=== PATIENT | male | born 1940 | race Caucasian/White ===

== ENCOUNTER 2017-04-19 19:57 | Observation (INO) | payer MEDICARE ==
[~2017-04-19] VITALS: Ht 172.7 cm; Wt 105.8 kg
[~2017-04-19 19:57] MED LIST: FURO20TA4 PO; PANT40TA PO; SPIR25TA4 PO
[2017-04-19 20:39] LABS: EOSINOPHILS % (AUTO) 6.9 % (0.0-8.0); HEMATOCRIT 27.8 % (42-54); LYMPHOCYTES % (AUTO) 19.3 % (21.0-51.0); MEAN CORPUSCULAR HEMOGLOBIN 33.1 pg (27.0-33.0); MEAN CORPUSCULAR HGB CONC 34.9 g/dL (32.0-36.0); MEAN CORPUSCULAR VOLUME 94.9 fL (79-99); MONOCYTES % (AUTO) 19.7 % (3.0-13.0); NEUTROPHILS % (AUTO) 53.1 % (40.0-77.0); NUCLEATED RED BLOOD CELLS 0.1 % (0.0-0.19); PLATELET COUNT (AUTO) 186 K/uL (130-400); RED BLOOD CELL COUNT(AUTO) 2.92 MIL/uL (4.50-6.20); RED CELL DISTRIBUTION WIDTH 15.9 % (11.0-15.5); WHITE BLOOD COUNT (AUTO) 5.7 K/uL (4.8-10.8)
[2017-04-19 20:52] LABS: INR 1.41 (0.85-1.15); PARTIAL THROMBOPLASTIN TIME 34.5 SEC (26.3-35.5); PROTHROMBIN TIME 14.7 SEC (9.6-11.6)
[2017-04-19 20:54] LABS: CREATININE 1.3 mg/dL (0.5-1.5); POTASSIUM 3.4 mmol/L (3.5-5.1)
[2017-04-19 21:08] LABS: ALBUMIN 2.2 g/dL (3.5-5.0); BILIRUBIN,TOTAL 1.8 mg/dL (0.2-1.0); CREATINE KINASE MB 0.9 ng/mL (0.5-3.6); TOTAL PROTEIN, SERUM 8.2 g/dL (6.0-8.3)
[2017-04-19] MEDS ORDERED: LACTULOSE 20 GM/30 ML UDCUP ONE (21:33)
[2017-04-20] MEDS ORDERED: POTASSIUM CHLORIDE 20 MEQ ERTAB PO PRN (00:45)
[2017-04-20] MEDS ORDERED: POTASSIUM CHLORIDE 10% ELIXIR 20 MEQ/15 ML UDCUP PO PRN (00:45)
[2017-04-20] MEDS ORDERED: LIDOCAINE HCL-MPF 1% 2ML VIAL IVP PRN (00:45)
[2017-04-20] MEDS ORDERED: HYDRALAZINE HCL 20 MG/ML VIAL IV PRN (00:45)
[2017-04-20] MEDS ORDERED: POTASSIUM CHLORIDE 20MEQ/100ML 100 ML IV PRN (00:45)
[2017-04-20] MEDS ORDERED: ONDANSETRON HCL 4 MG/2 ML VIAL IV PRN (00:45)
[2017-04-20 02:40] VITALS: BP 126/73
[2017-04-20] MEDS ORDERED: FURO40TA5 PO (03:35)
[2017-04-20] MEDS ORDERED: METO-408 PO (03:35)
[2017-04-20] MEDS ORDERED: LACT10SO32 PO (03:35)
[2017-04-20] MEDS ORDERED: SPIR25TA4 PO (03:35)
[2017-04-20] MEDS ORDERED: TRIA80OI15 TP (03:38)
[2017-04-20] MEDS ORDERED: FLUT30CR12 TP (03:38)
[2017-04-20] MEDS: INSULIN HUMULIN R 100 UNIT/ML 3ML SQ SCH ×4 (06:07→21:00)
[2017-04-20 06:26] LABS: MEAN CORPUSCULAR HEMOGLOBIN 32.6 pg (27.0-33.0); MEAN CORPUSCULAR HGB CONC 34.4 g/dL (32.0-36.0); MEAN CORPUSCULAR VOLUME 94.8 fL (79-99); NUCLEATED RED BLOOD CELLS 0.1 % (0.0-0.19); PLATELET COUNT (AUTO) 171 K/uL (130-400); RED BLOOD CELL COUNT(AUTO) 2.96 MIL/uL (4.50-6.20); WHITE BLOOD COUNT (AUTO) 5.7 K/uL (4.8-10.8)
[2017-04-20 06:37] LABS: CREATININE 1.2 mg/dL (0.5-1.5); POTASSIUM 3.3 mmol/L (3.5-5.1)
[2017-04-20 07:00] VITALS: BP 116/56
[2017-04-20 10:00] VITALS: BP 118/60
[2017-04-20] MEDS: LACTULOSE 20 GM/30 ML UDCUP PO SCH ×3 (10:10→21:09)
[2017-04-20] MEDS: PANTOPRAZOLE SODIUM 40 MG TABLET.DR PO SCH (10:10)
[2017-04-20] MEDS ORDERED: LACTULOSE 20 GM/30 ML UDCUP PO PRN (10:45)
[2017-04-20 11:00] VITALS: BP 110/63
[2017-04-20 12:40] LABS: APPEARANCE BODY FLUID CLOUDY (CLEAR); BODY FLUID WBC 168 /cu. mm.; COLOR,BODY FLUID ORANGE (LT YELLOW); SPECIMENTYPE,BODY FLUID ASCITES; TOTAL VOLUME,BODY FLUID 3800 mL
[2017-04-20 12:41] LABS: BODY FLUID RBC 7690 /cu. mm.
[2017-04-20 13:11] LABS: BF LYMPHOCYTE 26 %; BF MESOTHELIAL 63 %; BF MONOCYTE 4 %
[2017-04-20] MEDS: FUROSEMIDE 40 MG TABLET PO SCH (13:27)
[2017-04-20] MEDS: SPIRONOLACTONE 25 MG TAB PO SCH (13:27)
[2017-04-20 16:00] VITALS: BP 114/66
[2017-04-20 19:30] VITALS: BP 112/68
[2017-04-20] MEDS: FLUTICASONE PROPIONATE TP SCH (21:08)
[2017-04-20] MEDS: TRIAMCINOLONE ACETONIDE 0.1% CREAM 15GM TP SCH (21:08)
[2017-04-20] MEDS: METOPROLOL TARTRATE 25 MG TAB PO SCH (21:09)
[2017-04-21 00:29] VITALS: BP 114/66
[2017-04-21 04:58] VITALS: BP 109/68
[2017-04-21] MEDS: INSULIN HUMULIN R 100 UNIT/ML 3ML SQ SCH (05:45)
[2017-04-21 05:52] LABS: HEMATOCRIT 27.3 % (42-54); MEAN CORPUSCULAR HEMOGLOBIN 33.4 pg (27.0-33.0); MEAN CORPUSCULAR HGB CONC 35.2 g/dL (32.0-36.0); MEAN CORPUSCULAR VOLUME 94.9 fL (79-99); PLATELET COUNT (AUTO) 166 K/uL (130-400); RED BLOOD CELL COUNT(AUTO) 2.87 MIL/uL (4.50-6.20); RED CELL DISTRIBUTION WIDTH 16.2 % (11.0-15.5); WHITE BLOOD COUNT (AUTO) 5.1 K/uL (4.8-10.8)
[2017-04-21 05:57] LABS: CREATININE 1.2 mg/dL (0.5-1.5); POTASSIUM 3.5 mmol/L (3.5-5.1)
[2017-04-21 07:00] VITALS: BP 114/59
[2017-04-21] MEDS: FUROSEMIDE 40 MG TABLET PO SCH (10:08)
[2017-04-21] MEDS: METOPROLOL TARTRATE 25 MG TAB PO SCH (10:08)
[2017-04-21] MEDS: PANTOPRAZOLE SODIUM 40 MG TABLET.DR PO SCH (10:08)
[2017-04-21] MEDS: SPIRONOLACTONE 25 MG TAB PO SCH (10:08)
[2017-04-21] MEDS: LACTULOSE 20 GM/30 ML UDCUP PO SCH (10:10)
[2017-04-21] MEDS: FLUTICASONE PROPIONATE TP SCH (10:10)
[2017-04-21] MEDS: TRIAMCINOLONE ACETONIDE 0.1% CREAM 15GM TP SCH (10:11)
== END 2017-04-21 11:58 | disposition home or self-care (01) ==
LOC: EDH 19:57 → EDHIP 21:42 → 3CH 04-20 00:20 → EDHIP 04-20 00:24 → 4BH 04-20 01:51
PROVIDERS: ADMIT Family Medicine; ATTEND Family Medicine
DX: K74.60 Unspecified cirrhosis of liver (principal); R18.8 Other ascites; I48.91 Unspecified atrial fibrillation; I10 Essential (primary) hypertension; E11.9 Type 2 diabetes mellitus without complications; E72.4 Disorders of ornithine metabolism; D64.9 Anemia, unspecified; Z87.891 Personal history of nicotine dependence
CPT/HCPCS: 36415 ×3; 49083; 71045; 76700; 80048 ×2; 80053; 82140 ×2; 82550; 82553; 82948 ×5; 83874; 84484; 85025; 85027 ×2; 85610; 85730; 87071; 87205; 88108; 88305; 89051; 93005; 97161; 99285; G0378 ×38; G8978; G8979; G8980; G8981; G8982; G8983; C9113

== ENCOUNTER 2017-04-30 16:13 | Observation (INO) | payer MEDICARE ==
[~2017-04-30] VITALS: Ht 172.7 cm; Wt 112.0 kg
[~2017-04-30 16:13] MED LIST changes: +FLUT30CR12 TP; -FURO20TA4 PO; +FURO40TA5 PO; +LACT10SO32 PO; +METO-408 PO; -PANT40TA PO; +TRIA80OI15 TP
[2017-04-30 17:24] LABS: BASOPHILS % (AUTO) 0.9 % (0.0-5.0); EOSINOPHILS % (AUTO) 5.1 % (0.0-8.0); HEMATOCRIT 27.2 % (42-54); LYMPHOCYTES % (AUTO) 10.4 % (21.0-51.0); MEAN CORPUSCULAR HEMOGLOBIN 32.3 pg (27.0-33.0); MEAN CORPUSCULAR HGB CONC 34.6 g/dL (32.0-36.0); MEAN CORPUSCULAR VOLUME 93.6 fL (79-99); MONOCYTES % (AUTO) 18.7 % (3.0-13.0); NEUTROPHILS % (AUTO) 64.9 % (40.0-77.0); PLATELET COUNT (AUTO) 163 K/uL (130-400); RED CELL DISTRIBUTION WIDTH 15.6 % (11.0-15.5); WHITE BLOOD COUNT (AUTO) 7.2 K/uL (4.8-10.8)
[2017-04-30 17:36] LABS: CREATININE 1.5 mg/dL (0.5-1.5); POTASSIUM 4.1 mmol/L (3.5-5.1)
[2017-04-30 17:40] LABS: INR 1.51 (0.85-1.15); PARTIAL THROMBOPLASTIN TIME 34.3 SEC (26.3-35.5); PROTHROMBIN TIME 15.7 SEC (9.6-11.6)
[2017-04-30 17:41] LABS: ALBUMIN 2.1 g/dL (3.5-5.0); BILIRUBIN,TOTAL 2.3 mg/dL (0.2-1.0)
[2017-04-30] MEDS ORDERED: VANCOMYCIN 1GM+NS 250ML 250 ML IV ONE (18:12)
[2017-04-30 22:50] VITALS: BP 122/71
[2017-04-30] MEDS ORDERED: LIDOCAINE HCL-MPF 1% 2ML VIAL IJ PRN (23:30)
[2017-04-30] MEDS ORDERED: POTASSIUM CHLORIDE 10% ELIXIR 20 MEQ/15 ML UDCUP PO PRN (23:30)
[2017-04-30] MEDS ORDERED: ACETAMINOPHEN 325 MG TAB PO PRN ×2 (23:30)
[2017-04-30] MEDS ORDERED: CLONIDINE HCL 0.1 MG TABLET PO PRN (23:30)
[2017-04-30] MEDS ORDERED: POTASSIUM CHLORIDE 20 MEQ ERTAB PO PRN (23:30)
[2017-04-30] MEDS ORDERED: ONDANSETRON HCL 4 MG/2 ML VIAL IVP PRN (23:30)
[2017-04-30] MEDS ORDERED: SODIUM CHLORIDE 0.9% 10 ML VIAL IVP SCH (23:30)
[2017-04-30] MEDS ORDERED: POTASSIUM CHLORIDE 20MEQ/100ML 100 ML IV PRN (23:30)
[2017-04-30] MEDS ORDERED: LACTULOSE 20 GM/30 ML UDCUP PO PRN (23:30)
[2017-04-30] MEDS ORDERED: VANCOMYCIN 1GM+NS 250ML 250 ML IV SCH (23:45)
[2017-05-01] VITALS (7 sets, daily range): BP systolic 97–119; BP diastolic 49–69
[2017-05-01 05:11] LABS: HEMATOCRIT 26.4 % (42-54); MEAN CORPUSCULAR HEMOGLOBIN 32.8 pg (27.0-33.0); MEAN CORPUSCULAR HGB CONC 34.7 g/dL (32.0-36.0); MEAN CORPUSCULAR VOLUME 94.5 fL (79-99); PLATELET COUNT (AUTO) 158 K/uL (130-400); RED BLOOD CELL COUNT(AUTO) 2.79 MIL/uL (4.50-6.20); RED CELL DISTRIBUTION WIDTH 15.6 % (11.0-15.5); WHITE BLOOD COUNT (AUTO) 6.8 K/uL (4.8-10.8)
[2017-05-01 05:35] LABS: BILIRUBIN,TOTAL 3.4 mg/dL (0.2-1.0); CREATININE 1.5 mg/dL (0.5-1.5); POTASSIUM 3.8 mmol/L (3.5-5.1); TOTAL PROTEIN, SERUM 7.4 g/dL (6.0-8.3)
[2017-05-01] MEDS ORDERED: LACT10SO32 PO (05:39)
[2017-05-01] MEDS ORDERED: LACTULOSE 20 GM/30 ML UDCUP PO PRN (05:45)
[2017-05-01] MEDS ORDERED: VANCOMYCIN 1GM+NS 250ML 250 ML IV SCH ×3 (06:00→09:00)
[2017-05-01] MEDS ORDERED: COMPOUND IV REFRIGERATED 1 EACH IVSOLN MISC PRN (07:15)
[2017-05-01] MEDS: SPIRONOLACTONE 25 MG TAB PO SCH (08:42)
[2017-05-01] MEDS: LACTULOSE 20 GM/30 ML UDCUP PO SCH (08:42)
[2017-05-01] MEDS: FUROSEMIDE 40 MG TABLET PO SCH (08:42)
[2017-05-01] MEDS: METOPROLOL TARTRATE 25 MG TAB PO SCH ×2 (08:42→21:00)
[2017-05-01] MEDS: VANCOMYCIN 750MG + NS 250 ML IV SCH ×4 (08:43→20:16)
[2017-05-01] MEDS: TRIAMCINOLONE ACETONIDE 0.1% CREAM 15GM TP SCH ×2 (08:43→20:22)
[2017-05-01] MEDS: FLUTICASONE PROPIONATE TP SCH ×2 (09:00→20:22)
[2017-05-01] MEDS ORDERED: FUROSEMIDE 10 MG/ML 4ML VIAL IV SCH (09:30)
[2017-05-01] MEDS ORDERED: FUROSEMIDE 10 MG/ML 4ML VIAL ONE (17:51)
[2017-05-01] MEDS ORDERED: FLUTICASONE PROPIONATE TP SCH (21:00)
[2017-05-02 04:25] VITALS: BP 92/52
[2017-05-02 05:23] LABS: CREATININE 1.6 mg/dL (0.5-1.5); POTASSIUM 3.8 mmol/L (3.5-5.1)
[2017-05-02 08:00] VITALS: BP 108/63
[2017-05-02] MEDS: LACTULOSE 20 GM/30 ML UDCUP PO SCH (09:19)
[2017-05-02] MEDS: SPIRONOLACTONE 25 MG TAB PO SCH (09:19)
[2017-05-02] MEDS: METOPROLOL TARTRATE 25 MG TAB PO SCH (09:19)
[2017-05-02] MEDS: FUROSEMIDE 40 MG TABLET PO SCH (09:20)
[2017-05-02] MEDS ORDERED: DOXYCYCLINE HYCLATE 100 MG TABLET PO SCH (09:30)
[2017-05-02] MEDS: TRIAMCINOLONE ACETONIDE 0.1% CREAM 15GM TP SCH (09:58)
[2017-05-02 11:53] VITALS: BP 129/60
== END 2017-05-02 13:27 | disposition home or self-care (01) ==
LOC: EDH 16:13 → EDHIP 21:43 → 4BH 22:30
PROVIDERS: ADMIT Internal Medicine; ATTEND Internal Medicine
DX: L03.116 Cellulitis of left lower limb (principal); L03.115 Cellulitis of right lower limb; K74.60 Unspecified cirrhosis of liver; R18.8 Other ascites; D64.9 Anemia, unspecified; I48.91 Unspecified atrial fibrillation; E11.9 Type 2 diabetes mellitus without complications; I10 Essential (primary) hypertension; Z87.891 Personal history of nicotine dependence; Z79.899 Other long term (current) drug therapy; Z96.652 Presence of left artificial knee joint
CPT/HCPCS: 36415 ×3; 49083; 71045; 80048; 80053 ×2; 82140; 83880; 85025; 85027; 85610; 85730; 93005; 93970; 96365; 96366; 96375; 99285; G0378 ×40; J1940; J3370 ×3; J7030 ×2

== ENCOUNTER 2017-05-22 19:01 | Inpatient (IN) | payer MEDICARE ==
[~2017-05-22] VITALS: Ht 172.7 cm; Wt 103.2 kg
[2017-05-22 19:38] LABS: BASOPHILS % (AUTO) 0.8 % (0.0-5.0); EOSINOPHILS % (AUTO) 12.1 % (0.0-8.0); HEMATOCRIT 27.4 % (42-54); LYMPHOCYTES % (AUTO) 12.5 % (21.0-51.0); MEAN CORPUSCULAR HEMOGLOBIN 32.3 pg (27.0-33.0); MEAN CORPUSCULAR HGB CONC 34.4 g/dL (32.0-36.0); MONOCYTES % (AUTO) 19.2 % (3.0-13.0); NEUTROPHILS % (AUTO) 55.4 % (40.0-77.0); NUCLEATED RED BLOOD CELLS 0.1 % (0.0-0.19); PLATELET COUNT (AUTO) 152 K/uL (130-400); RED BLOOD CELL COUNT(AUTO) 2.92 MIL/uL (4.50-6.20); RED CELL DISTRIBUTION WIDTH 17.5 % (11.0-15.5); WHITE BLOOD COUNT (AUTO) 5.8 K/uL (4.8-10.8)
[2017-05-22 19:50] LABS: CREATININE 1.6 mg/dL (0.5-1.5); POTASSIUM 3.5 mmol/L (3.5-5.1)
[2017-05-22 19:51] LABS: INR 1.53 (0.85-1.15); PROTHROMBIN TIME 15.9 SEC (9.6-11.6)
[2017-05-22 20:03] LABS: ALBUMIN 1.9 g/dL (3.5-5.0); BILIRUBIN,TOTAL 3.1 mg/dL (0.2-1.0); TOTAL PROTEIN, SERUM 8.4 g/dL (6.0-8.3)
[2017-05-22] MEDS ORDERED: FUROSEMIDE 10 MG/ML 4ML VIAL ONE (21:19)
[2017-05-22] MEDS ORDERED: ALBUMIN (HUMAN) 25% 50 ML IV ONE (21:20)
[2017-05-22] MEDS ORDERED: GUAIFENESIN-DM 200/20 MG 10 ML PO PRN (23:15)
[2017-05-22] MEDS ORDERED: POTASSIUM CHLORIDE 20 MEQ ERTAB PO PRN (23:15)
[2017-05-22] MEDS ORDERED: LIDOCAINE HCL-MPF 1% 2ML VIAL IVP PRN (23:15)
[2017-05-22] MEDS ORDERED: POTASSIUM CHLORIDE 20MEQ/100ML 100 ML IV PRN (23:15)
[2017-05-22] MEDS ORDERED: POTASSIUM CHLORIDE 10% ELIXIR 20 MEQ/15 ML UDCUP PO PRN (23:15)
[2017-05-22] MEDS ORDERED: ONDANSETRON HCL 4 MG/2 ML VIAL IV PRN (23:15)
[2017-05-23 04:18] LABS: HEMATOCRIT 26.5 % (42-54); MEAN CORPUSCULAR HEMOGLOBIN 33.1 pg (27.0-33.0); MEAN CORPUSCULAR HGB CONC 35.3 g/dL (32.0-36.0); MEAN CORPUSCULAR VOLUME 93.8 fL (79-99); NUCLEATED RED BLOOD CELLS 0.1 % (0.0-0.19); PLATELET COUNT (AUTO) 146 K/uL (130-400); RED BLOOD CELL COUNT(AUTO) 2.83 MIL/uL (4.50-6.20); RED CELL DISTRIBUTION WIDTH 17.7 % (11.0-15.5)
[2017-05-23 04:49] LABS: CARBON DIOXIDE 31 mmol/L (21-32); CHLORIDE 98 mmol/L (101-111); CREATINE KINASE MB 0.9 ng/mL (0.5-3.6); CREATINE KINASE, TOTAL 171 U/L (21-232); CREATININE 1.5 mg/dL (0.5-1.5); GLOMERULAR FILTR. RATE CALC 48 mL/min (>60); GLUCOSE,RANDOM 124 mg/dL (70-105); MYOGLOBIN 152 ng/mL (10-92); POTASSIUM 3.5 mmol/L (3.5-5.1); SODIUM SERUM 137 mmol/L (136-145); TROPONIN I < 0.04 ng/mL (0.00-0.06); UREA NITROGEN, BLOOD 17 mg/dL (7-18)
[2017-05-23] MEDS: INSULIN HUMULIN R 100 UNIT/ML 3ML SQ SCH ×4 (07:30→20:47)
[2017-05-23] MEDS: PANTOPRAZOLE SODIUM 40 MG TABLET.DR PO SCH (09:00)
[2017-05-23] MEDS: FUROSEMIDE 10 MG/ML 4ML VIAL IVP SCH ×2 (09:00→20:47)
[2017-05-23] MEDS ORDERED: FUROSEMIDE 10 MG/ML 4ML VIAL ONE (16:32)
[2017-05-23] MEDS ORDERED: PANTOPRAZOLE SODIUM 40 MG TABLET.DR PO ONE (16:33)
[2017-05-23 17:00] VITALS: BP 112/67
[2017-05-23 19:30] VITALS: BP 106/68
[2017-05-24] VITALS (10 sets, daily range): BP systolic 96–124; BP diastolic 55–88
[2017-05-24 04:19] LABS: CREATININE 1.4 mg/dL (0.5-1.5); POTASSIUM 3.5 mmol/L (3.5-5.1)
[2017-05-24] MEDS: INSULIN HUMULIN R 100 UNIT/ML 3ML SQ SCH ×3 (06:25→16:24)
[2017-05-24] MEDS: PANTOPRAZOLE SODIUM 40 MG TABLET.DR PO SCH (08:49)
[2017-05-24] MEDS: FUROSEMIDE 10 MG/ML 4ML VIAL IVP SCH (08:49)
== END 2017-05-24 19:00 | disposition home or self-care (01) | DRG 433 ==
LOC: EDH 19:01 → OBSVTOIN 21:57 → EDHIP 21:57 → 3AH 05-23 16:37
PROVIDERS: ADMIT Internal Medicine; ATTEND Internal Medicine
PROC: 0W9G3ZZ Drainage of Peritoneal Cavity, Percutaneous Approach (ICD-10-PCS; principal; 2017-05-23)
DX: K74.60 Unspecified cirrhosis of liver (principal); R18.8 Other ascites; N17.9 Acute kidney failure, unspecified; I48.0 Paroxysmal atrial fibrillation; I50.22 Chronic systolic (congestive) heart failure; I11.0 Hypertensive heart disease with heart failure; E44.1 Mild protein-calorie malnutrition; D64.9 Anemia, unspecified; E11.9 Type 2 diabetes mellitus without complications; N28.9 Disorder of kidney and ureter, unspecified; R09.89 Other specified symptoms and signs involving the circulatory and respiratory systems; Z88.2 Allergy status to sulfonamides; Z88.8 Allergy status to other drugs, medicaments and biological substances; Z82.3 Family history of stroke; Z83.3 Family history of diabetes mellitus
CPT/HCPCS: 36415; 49083; 71045; 80048; 80053; 82550; 82553; 82948; 83874; 83880; 84484; 85025; 85027; 85610; 85730; 93005; 93306; J1940; P9047

== ENCOUNTER 2017-05-27 15:05 | Inpatient (IN) | payer MEDICARE ==
[~2017-05-27] VITALS: Ht 172.7 cm; Wt 94.9 kg
[2017-05-27 15:42] LABS: BASOPHILS % (AUTO) 0.8 % (0.0-5.0); EOSINOPHILS % (AUTO) 13.1 % (0.0-8.0); HEMATOCRIT 27.3 % (42-54); LYMPHOCYTES % (AUTO) 14.8 % (21.0-51.0); MEAN CORPUSCULAR HEMOGLOBIN 33.9 pg (27.0-33.0); MEAN CORPUSCULAR HGB CONC 35.8 g/dL (32.0-36.0); MEAN CORPUSCULAR VOLUME 94.7 fL (79-99); NEUTROPHILS % (AUTO) 54.3 % (40.0-77.0); NUCLEATED RED BLOOD CELLS 0.1 % (0.0-0.19); PLATELET COUNT (AUTO) 147 K/uL (130-400); RED BLOOD CELL COUNT(AUTO) 2.88 MIL/uL (4.50-6.20); RED CELL DISTRIBUTION WIDTH 18.2 % (11.0-15.5); WHITE BLOOD COUNT (AUTO) 5.3 K/uL (4.8-10.8)
[2017-05-27 15:51] LABS: CREATININE 1.5 mg/dL (0.5-1.5); POTASSIUM 3.7 mmol/L (3.5-5.1)
[2017-05-27 15:56] LABS: BILIRUBIN,TOTAL 3.1 mg/dL (0.2-1.0); TOTAL PROTEIN, SERUM 8.2 g/dL (6.0-8.3)
[2017-05-27 16:02] LABS: INR 1.51 (0.85-1.15); PARTIAL THROMBOPLASTIN TIME 33.9 SEC (26.3-35.5); PROTHROMBIN TIME 15.7 SEC (9.6-11.6)
[2017-05-27 16:14] LABS: B-TYPE NATRIURETIC PEPTIDE 721 pg/mL (0-100)
[2017-05-27] MEDS ORDERED: LEVOFLOXACIN 500 MG/D5W 100 ML 100 ML ONE (16:29)
[2017-05-27 19:00] LABS: APPEARANCE,URINE Clear (CLEAR); BILIRUBIN,URINE Small (NEGATIVE); COLOR,URINE Dark Yellow (YELLOW); GLUCOSE, URINE (UA) Negative (NEGATIVE); KETONES,URINE Negative (NEGATIVE); LEUKOCYTE ESTERASE ,URINE Negative (NEGATIVE); NITRATE,URINE Negative (NEGATIVE); OCCULT BLOOD,URINE Negative (NEGATIVE); PH,URINE 5.5 (5.0-8.0); PROTEIN,URINE Trace (NEGATIVE)
[2017-05-27 19:13] LABS: BACTERIA,URINE None Seen /HPF (None Seen); RBC,URINE None Seen /HPF (0-1); SQUAMOUS EPITHELIAL CELL,UR 0-2 /HPF (0-2); WBC,URINE None Seen /HPF (0-1)
[2017-05-27] MEDS ORDERED: FUROSEMIDE 10 MG/ML 4ML VIAL ONE (20:32)
[2017-05-27] MEDS ORDERED: LIDOCAINE HCL-MPF 1% 2ML VIAL IJ PRN (21:00)
[2017-05-27] MEDS ORDERED: LACTULOSE 20 GM/30 ML UDCUP PO PRN (21:00)
[2017-05-27] MEDS ORDERED: DEXTROSE 50%-WATER 50 ML DISP.SYRIN IV PRN (21:00)
[2017-05-27] MEDS ORDERED: ONDANSETRON HCL 4 MG/2 ML VIAL IVP PRN (21:00)
[2017-05-27] MEDS ORDERED: GLUCAGON 1MG KIT 1 MG ML IM PRN (21:00)
[2017-05-27] MEDS ORDERED: POTASSIUM CHLORIDE 10% ELIXIR 20 MEQ/15 ML UDCUP PO PRN (21:00)
[2017-05-27] MEDS ORDERED: POTASSIUM CHLORIDE 20MEQ/100ML 100 ML IV PRN (21:00)
[2017-05-27] MEDS ORDERED: CLONIDINE HCL 0.1 MG TABLET PO PRN (21:00)
[2017-05-27] MEDS ORDERED: IPRATROPIUM/ALBUTEROL SULFATE 3 ML SOLUTION IH PRN (21:15)
[2017-05-28 00:30] VITALS: BP 122/64
[2017-05-28 03:10] VITALS: BP 106/67
[2017-05-28 04:03] LABS: HEMATOCRIT 27.3 % (42-54); MEAN CORPUSCULAR HEMOGLOBIN 32.4 pg (27.0-33.0); MEAN CORPUSCULAR HGB CONC 34.5 g/dL (32.0-36.0); NUCLEATED RED BLOOD CELLS 0.1 % (0.0-0.19); PLATELET COUNT (AUTO) 149 K/uL (130-400); WHITE BLOOD COUNT (AUTO) 5.1 K/uL (4.8-10.8)
[2017-05-28 04:35] LABS: ALBUMIN 1.9 g/dL (3.5-5.0); BILIRUBIN,TOTAL 3.2 mg/dL (0.2-1.0); CREATININE 1.4 mg/dL (0.5-1.5); POTASSIUM 3.6 mmol/L (3.5-5.1); TOTAL PROTEIN, SERUM 7.9 g/dL (6.0-8.3)
[2017-05-28] MEDS: POTASSIUM CHLORIDE 20 MEQ ERTAB PO PRN ×2 (04:46→11:20)
[2017-05-28] MEDS: INSULIN R PO SSI SQ SCH ×4 (06:22→21:00)
[2017-05-28 08:00] VITALS: BP 111/60
[2017-05-28] MEDS ORDERED: FUROSEMIDE 10 MG/ML 2ML VIAL IV SCH (09:00)
[2017-05-28] MEDS: FAMOTIDINE 20MG TAB 20 MG TAB PO SCH ×2 (09:13→21:51)
[2017-05-28] MEDS: LACTULOSE 20 GM/30 ML UDCUP PO SCH ×2 (09:14→21:51)
[2017-05-28 12:00] VITALS: BP 112/59
[2017-05-28] MEDS: DIPHENHYDRAMINE HCL 25 MG CAPSULE PO PRN (12:58)
[2017-05-28 13:56] LABS: INR 1.51 (0.85-1.15); PROTHROMBIN TIME 15.7 SEC (9.6-11.6)
[2017-05-28] MEDS ORDERED: ALBUMIN (HUMAN) 25% 50 ML IV SCH ×2 (15:45)
[2017-05-28 16:00] VITALS: BP 106/60
[2017-05-28 19:30] VITALS: BP 114/67
[2017-05-28] MEDS: FUROSEMIDE 10 MG/ML 2ML VIAL IV SCH (21:52)
[2017-05-29 03:42] VITALS: BP 109/68
[2017-05-29] MEDS: INSULIN R PO SSI SQ SCH ×3 (05:55→21:00)
[2017-05-29 08:00] VITALS: BP 113/70
[2017-05-29] MEDS: LACTULOSE 20 GM/30 ML UDCUP PO SCH ×2 (08:56→20:32)
[2017-05-29] MEDS: FUROSEMIDE 10 MG/ML 2ML VIAL IV SCH ×2 (08:56→20:33)
[2017-05-29] MEDS: FAMOTIDINE 20MG TAB 20 MG TAB PO SCH ×2 (08:56→20:33)
[2017-05-29 11:33] VITALS: BP 111/59
[2017-05-29 11:57] VITALS: BP 111/64
[2017-05-29 16:00] VITALS: BP 100/60
[2017-05-29 19:30] VITALS: BP 114/68
[2017-05-30] VITALS (7 sets, daily range): BP systolic 102–119; BP diastolic 57–64
[2017-05-30] MEDS: INSULIN R PO SSI SQ SCH ×4 (05:39→20:22)
[2017-05-30] MEDS: FAMOTIDINE 20MG TAB 20 MG TAB PO SCH ×2 (09:12→20:22)
[2017-05-30] MEDS: LACTULOSE 20 GM/30 ML UDCUP PO SCH ×2 (09:12→20:22)
[2017-05-30] MEDS: FUROSEMIDE 10 MG/ML 2ML VIAL IV SCH ×2 (09:12→20:22)
[2017-05-30] MEDS: DIPHENHYDRAMINE HCL 25 MG CAPSULE PO PRN (09:21)
[2017-05-31 03:00] VITALS: BP 101/54
[2017-05-31] MEDS: INSULIN R PO SSI SQ SCH (05:31)
[2017-05-31] MEDS: FUROSEMIDE 10 MG/ML 2ML VIAL IV SCH (08:56)
[2017-05-31] MEDS: LACTULOSE 20 GM/30 ML UDCUP PO SCH (08:56)
[2017-05-31] MEDS: FAMOTIDINE 20MG TAB 20 MG TAB PO SCH (08:57)
[2017-05-31 08:58] VITALS: BP 100/54
[2017-05-31 10:12] LABS: CREATININE 1.4 mg/dL (0.5-1.5); POTASSIUM 3.3 mmol/L (3.5-5.1)
[2017-05-31 12:13] VITALS: BP 108/60
[2017-06-01] MEDS ORDERED: FUROSEMIDE 80 MG TABLET PO SCH (09:00)
== END 2017-05-31 15:25 | DRG 432 ==
LOC: EDH 15:05 → EDHIP 20:35 → OBSVTOIN 20:35 → 3AH 05-28 00:23
PROVIDERS: ADMIT Family Medicine; ATTEND Family Medicine
PROC: 0W9G30Z Drainage of Peritoneal Cavity with Drainage Device, Percutaneous Approach (ICD-10-PCS; principal; 2017-05-28)
PROC: 5A09357 Assistance with Respiratory Ventilation, Less than 24 Consecutive Hours, Continuous Positive Airway Pressure (ICD-10-PCS; 2017-05-28)
DX: K74.60 Unspecified cirrhosis of liver (principal); I50.33 Acute on chronic diastolic (congestive) heart failure; R18.8 Other ascites; I48.0 Paroxysmal atrial fibrillation; I48.2 Chronic atrial fibrillation; D64.9 Anemia, unspecified; I11.0 Hypertensive heart disease with heart failure; R53.81 Other malaise; E11.9 Type 2 diabetes mellitus without complications; E78.5 Hyperlipidemia, unspecified; N28.9 Disorder of kidney and ureter, unspecified; Z88.2 Allergy status to sulfonamides; Z88.8 Allergy status to other drugs, medicaments and biological substances; Z82.3 Family history of stroke; Z83.3 Family history of diabetes mellitus
CPT/HCPCS: 36415; 49083; 70450; 71045; 74018; 76705; 80048; 80053; 81001; 82140; 82550; 82553; 82948; 83605; 83690; 83874; 83880; 84484; 85025; 85027; 85610; 85730; 87040; 93005; 93306; 94664; J1940; J1956; P9047; Q0163

== ENCOUNTER → 2017-06-30 | Outpatient (CLI) | payer MEDICARE ==
[~2017-06-30] MED LIST changes: +ALBUMIN (HUMAN) 25% 200 ML IV SCH; +LIDOCAINE HCL 1% 20 ML VIAL ONE; -SPIR25TA4 PO; +SPIR25TA6 PO
[2017-06-30 08:10] LABS: BASOPHILS % (AUTO) 0.9 % (0.0-5.0); EOSINOPHILS % (AUTO) 5.8 % (0.0-8.0); HEMATOCRIT 28.1 % (42-54); LYMPHOCYTES % (AUTO) 10.3 % (21.0-51.0); MEAN CORPUSCULAR HGB CONC 34.2 g/dL (32.0-36.0); MEAN CORPUSCULAR VOLUME 96.3 fL (79-99); MONOCYTES % (AUTO) 16.1 % (3.0-13.0); NEUTROPHILS % (AUTO) 66.9 % (40.0-77.0); PLATELET COUNT (AUTO) 188 K/uL (130-400); RED BLOOD CELL COUNT(AUTO) 2.92 MIL/uL (4.50-6.20); WHITE BLOOD COUNT (AUTO) 6.4 K/uL (4.8-10.8)
[2017-06-30 08:22] LABS: INR 1.48 (0.85-1.15); PROTHROMBIN TIME 15.4 SEC (9.6-11.6)
[2017-06-30 08:24] LABS: ALBUMIN 2.2 g/dL (3.5-5.0); BILIRUBIN,TOTAL 2.6 mg/dL (0.2-1.0); CREATININE 1.3 mg/dL (0.5-1.5); POTASSIUM 4.3 mmol/L (3.5-5.1); TOTAL PROTEIN, SERUM 8.8 g/dL (6.0-8.3)
[2017-06-30 13:05] LABS: ALBUMIN,BODY FLUID < 0.6 g/dL
[2017-06-30 13:50] LABS: SPECIMENTYPE,BODY FLUID ASCITES
[2017-06-30 13:51] LABS: APPEARANCE BODY FLUID CLOUDY (CLEAR); BODY FLUID RBC 14089 /cu. mm.; BODY FLUID WBC 167 /cu. mm.; COLOR,BODY FLUID RED (LT YELLOW); TOTAL VOLUME,BODY FLUID 5500 mL
[2017-06-30 13:56] LABS: BF LYMPHOCYTE 20 %; BF MESOTHELIAL 74 %; BF MONOCYTE 3 %
== END | disposition home or self-care (01) ==
LOC: RAH 07:31
PROVIDERS: ATTEND Internal Medicine Gastroenterology
DX: R18.8 Other ascites (principal)
CPT/HCPCS: 36415; 49083; 80053; 82042; 84157; 85025; 85610; 87071; 87205; 88108; 88305; 89051; P9046

== ENCOUNTER 2017-07-03 15:36 | Emergency (ER) | payer MEDICARE ==
[~2017-07-03 15:36] MED LIST changes: -ALBUMIN (HUMAN) 25% 200 ML IV SCH; -LIDOCAINE HCL 1% 20 ML VIAL ONE
== END 2017-07-03 17:37 | disposition home or self-care (01) ==
LOC: EDH 15:36
DX: Z48.01 Encounter for change or removal of surgical wound dressing (principal); I10 Essential (primary) hypertension; K74.60 Unspecified cirrhosis of liver; Z88.6 Allergy status to analgesic agent; Z88.1 Allergy status to other antibiotic agents; Z98.890 Other specified postprocedural states

== ENCOUNTER → 2017-07-25 | Outpatient (CLI) | payer MEDICARE ==
[~2017-07-25] MED LIST changes: +ALBUMIN (HUMAN) 25% 200 ML IV SCH; +LIDOCAINE HCL 1% 20 ML VIAL ONE
[2017-07-25 10:03] LABS: EOSINOPHILS % (AUTO) 7.2 % (0.0-8.0); HEMATOCRIT 27.5 % (42-54); LYMPHOCYTES % (AUTO) 8.6 % (21.0-51.0); MEAN CORPUSCULAR HEMOGLOBIN 35.4 pg (27.0-33.0); MEAN CORPUSCULAR VOLUME 98.5 fL (79-99); MONOCYTES % (AUTO) 17.7 % (3.0-13.0); NEUTROPHILS % (AUTO) 65.5 % (40.0-77.0); PLATELET COUNT (AUTO) 175 K/uL (130-400); RED BLOOD CELL COUNT(AUTO) 2.79 MIL/uL (4.50-6.20); RED CELL DISTRIBUTION WIDTH 17.3 % (11.0-15.5); WHITE BLOOD COUNT (AUTO) 6.6 K/uL (4.8-10.8)
[2017-07-25 10:23] LABS: INR 1.44 (0.85-1.15)
[2017-07-25 10:39] LABS: ALBUMIN 2.2 g/dL (3.5-5.0); BILIRUBIN,TOTAL 2.3 mg/dL (0.2-1.0); CREATININE 1.5 mg/dL (0.5-1.5); POTASSIUM 4.9 mmol/L (3.5-5.1); TOTAL PROTEIN, SERUM 8.4 g/dL (6.0-8.3)
[2017-07-25 12:30] LABS: SPECIMENTYPE,BODY FLUID ASCITES
[2017-07-25 12:44] LABS: APPEARANCE BODY FLUID SLIGHTLY CLOUDY (CLEAR); COLOR,BODY FLUID YELLOW (LT YELLOW); TOTAL VOLUME,BODY FLUID 8200 mL
[2017-07-25 12:45] LABS: BODY FLUID WBC 135 /cu. mm.
[2017-07-25 12:46] LABS: BODY FLUID RBC 2277 /cu. mm.
[2017-07-25 13:07] LABS: BF EOSINOPHIL 1 %; BF LYMPHOCYTE 16 %; BF MESOTHELIAL 78 %; BF MONOCYTE 1 %
== END | disposition home or self-care (01) ==
LOC: RAH 09:17
PROVIDERS: ATTEND Internal Medicine
DX: R18.8 Other ascites (principal); K74.60 Unspecified cirrhosis of liver
CPT/HCPCS: 36415; 49083; 80053; 85025; 85610; 87071; 87205; 88108; 88305; 89051; P9046

== ENCOUNTER → 2017-08-10 | Outpatient (CLI) | payer MEDICARE ==
[2017-08-10 12:28] LABS: BASOPHILS % (AUTO) 0.8 % (0.0-5.0); EOSINOPHILS % (AUTO) 4.7 % (0.0-8.0); HEMATOCRIT 27.8 % (42-54); LYMPHOCYTES % (AUTO) 7.6 % (21.0-51.0); MEAN CORPUSCULAR HEMOGLOBIN 33.8 pg (27.0-33.0); MEAN CORPUSCULAR HGB CONC 34.3 g/dL (32.0-36.0); MEAN CORPUSCULAR VOLUME 98.7 fL (79-99); MONOCYTES % (AUTO) 16.8 % (3.0-13.0); NEUTROPHILS % (AUTO) 70.1 % (40.0-77.0); PLATELET COUNT (AUTO) 192 K/uL (130-400); RED BLOOD CELL COUNT(AUTO) 2.81 MIL/uL (4.50-6.20); RED CELL DISTRIBUTION WIDTH 16.2 % (11.0-15.5); WHITE BLOOD COUNT (AUTO) 6.5 K/uL (4.8-10.8)
[2017-08-10 12:36] LABS: INR 1.41 (0.85-1.15); PROTHROMBIN TIME 14.7 SEC (9.6-11.6)
[2017-08-10 12:38] LABS: ALBUMIN 2.2 g/dL (3.5-5.0); BILIRUBIN,TOTAL 2.7 mg/dL (0.2-1.0); CREATININE 1.3 mg/dL (0.5-1.5); POTASSIUM 5.3 mmol/L (3.5-5.1)
[2017-08-10 16:19] LABS: APPEARANCE BODY FLUID CLOUDY (CLEAR); COLOR,BODY FLUID YELLOW (LT YELLOW); SPECIMENTYPE,BODY FLUID ASCITES
[2017-08-10 16:20] LABS: BODY FLUID WBC 175 /cu. mm.; TOTAL VOLUME,BODY FLUID 9000 mL
[2017-08-10 16:21] LABS: BODY FLUID RBC 1054 /cu. mm.
[2017-08-10 16:28] LABS: BF LYMPHOCYTE 26 %; BF MONOCYTE 6 %; BF OTHER CELLS 5
== END | disposition home or self-care (01) ==
LOC: RAH 11:45
PROVIDERS: ATTEND Internal Medicine Gastroenterology
DX: R18.8 Other ascites (principal)
CPT/HCPCS: 36415; 49083; 80053; 85025; 85610; 87071; 87205; 88108; 88305; 89051; P9046

== ENCOUNTER → 2017-08-18 | Outpatient (CLI) | payer MEDICARE ==
[~2017-08-18] MED LIST changes: -LIDOCAINE HCL 1% 20 ML VIAL ONE
[2017-08-18 08:25] LABS: BASOPHILS % (AUTO) 1.2 % (0.0-5.0); EOSINOPHILS % (AUTO) 8.4 % (0.0-8.0); HEMATOCRIT 27.3 % (42-54); LYMPHOCYTES % (AUTO) 9.2 % (21.0-51.0); MEAN CORPUSCULAR HEMOGLOBIN 34.2 pg (27.0-33.0); MEAN CORPUSCULAR HGB CONC 34.7 g/dL (32.0-36.0); MEAN CORPUSCULAR VOLUME 98.5 fL (79-99); MONOCYTES % (AUTO) 18.2 % (3.0-13.0); PLATELET COUNT (AUTO) 186 K/uL (130-400); RED BLOOD CELL COUNT(AUTO) 2.77 MIL/uL (4.50-6.20); RED CELL DISTRIBUTION WIDTH 16.2 % (11.0-15.5); WHITE BLOOD COUNT (AUTO) 6.6 K/uL (4.8-10.8)
[2017-08-18 08:38] LABS: ALBUMIN 2.3 g/dL (3.5-5.0); BILIRUBIN,TOTAL 1.8 mg/dL (0.2-1.0); CREATININE 1.5 mg/dL (0.5-1.5); TOTAL PROTEIN, SERUM 7.8 g/dL (6.0-8.3)
[2017-08-18 08:39] LABS: INR 1.41 (0.85-1.15); PROTHROMBIN TIME 14.7 SEC (9.6-11.6)
[2017-08-18 12:06] LABS: APPEARANCE BODY FLUID CLEAR (CLEAR); COLOR,BODY FLUID YELLOW (LT YELLOW); SPECIMENTYPE,BODY FLUID ASCITES
[2017-08-18 12:07] LABS: BODY FLUID RBC 1178 /cu. mm.; BODY FLUID WBC 189 /cu. mm.
[2017-08-18 12:08] LABS: BF LYMPHOCYTE 17 %; BF MESOTHELIAL 73 %; BF MONOCYTE 6 %
[2017-08-18 12:47] LABS: TOTAL VOLUME,BODY FLUID 8700 mL
== END | disposition home or self-care (01) ==
LOC: RAH 08:03
PROVIDERS: ATTEND Internal Medicine Gastroenterology
DX: R18.8 Other ascites (principal)
CPT/HCPCS: 36415; 49083; 80053; 85025; 85610; 87071; 87205; 88108; 88305; 89051; P9046